=== PATIENT | male | born 1995 | race Caucasian/White ===

== ENCOUNTER 2019-06-10 18:07 | Emergency (ER) | payer OTHER ==
[~2019-06-10] VITALS: Ht 172.7 cm; Wt 90.5 kg
[2019-06-10] MEDS ORDERED: ibuprofen (18:15)
[2019-06-10] MEDS ORDERED: IBUP-1022 PO (19:24)
[2019-06-10] MEDS ORDERED: CYCL10TA PO (19:24)
[2019-06-10 19:29] VITALS: BP 134/60
[2019-06-10] MEDS ORDERED: CYCLOBENZAPRINE 10 MG TAB PO ONE (19:45)
== END 2019-06-10 19:39 | disposition home or self-care (01) ==
LOC: M ED 18:07
DX: M54.32 Sciatica, left side (principal); M54.31 Sciatica, right side; F17.200 Nicotine dependence, unspecified, uncomplicated